=== PATIENT | male | born 1985 | race Caucasian/White ===

== ENCOUNTER 2018-02-15 16:28 | Emergency (ER) | payer MEDICAID ==
[~2018-02-15] VITALS: Ht 167.6 cm; Wt 64.4 kg
--- NOTE | 2018-02-15 16:28 | NUR ---
PT BIBA ALS TO BED 3
[2018-02-15 16:30] VITALS: BP 157/83
--- NOTE | 2018-02-15 16:42 | NUR ---
32 yo m bib als amr with c/o possible substance abuse. Patient sts he ingested "prostate vitamins" this morning. He states that he was drinking beer, his friend told him he needed prostate meds, and he took the med with beer, started feeling "funny" and "dizzy", so he drank more beer. Patient denies any drug use. Patient reports of anxiety and 5/10 "sharp", intermittent, non-radiating left sided chest pain and generalized body pain with palpation since 1000 today. Patient is tachycardiac, denies headache, dizziness, n/v at this time. Skin is dry/warm/color apprioriate for ethnicity. pt aaox4, gcs 15, cms intact, rr even and unlabored, lungs bl clear. abd soft, non-tender. er md notified. pt needs met, safety precautions in place. will continue to monitor. Patient admits to using meth approximately 2 months ago.
[2018-02-15] MEDS ORDERED: LORazepam 2 MG/ML VIAL IVP ONE (16:45)
[2018-02-15] MEDS ORDERED: NACL 0.9% 1,000 ML IV ONE (16:45)
[2018-02-15 17:09] LABS: BASOPHILS % (AUTO) 0.3 % (0.0-2.0); EOSINOPHILS % (AUTO) 0.1 % (0.0-4.0); HEMATOCRIT 43.9 % (36-52); HEMOGLOBIN 15.2 g/dL (12.0-18.0); LYMPHOCYTES % (AUTO) 9.2 % (20.5-51.1); MEAN CORPUSCULAR HEMOGLOBIN 32 pg (27-31); MEAN CORPUSCULAR HGB CONC 35 g/dL (33-37); MONOCYTES # (AUTO) 0.3 K/uL (0.8-1.0); MONOCYTES % (AUTO) 3.2 % (1.7-9.3); NEUTROPHILS # (AUTO) 9.1 K/uL (1.8-7.7); NEUTROPHILS % (AUTO) 87.2 % (42.2-75.2); PLATELET COUNT (AUTO) 263 K/uL (140-450); RED BLOOD CELL COUNT(AUTO) 4.72 MIL/uL (4.20-6.10); WHITE BLOOD COUNT (AUTO) 10.4 K/uL (4.8-10.8)
--- NOTE | 2018-02-15 17:22 | NUR ---
XRAY AT BEDSIDE
[2018-02-15 17:29] LABS: ALBUMIN 4.1 g/dL (3.4-5.0); ANION GAP 16.4 (8-16); ASPARTATE AMINOTRANSFERASE 24 U/L (15-37); CARBON DIOXIDE 26.6 mmol/L (21-32); CHLORIDE 95 mmol/L (98-107); GFR ARICAN-AMERICAN 110 mL/min (>90); GLUCOSE 136 mg/dL (74-106); SODIUM SERUM 134 mmol/L (136-145); TOTAL BILIRUBIN 0.4 mg/dL (0.0-1.0); UREA NITROGEN, BLOOD 10 mg/dL (7-18)
[2018-02-15 17:40] LABS: ACETAMINOPHEN < 0.5 ug/ml (10-30); SALICYLATE < 2.8 mg/dL (2.8-20.0)
[2018-02-15] MEDS ORDERED: ONDANSETRON 4 MG/2 ML VIAL IVP ONE (18:15)
[2018-02-15 18:16] LABS: BARBITURATE, URINE NEG. ng/ml (NEG <=200); BENZODIAZEPINE, URINE NEG. ng/mL (NEG <=200); CANNABINOID, URINE NEG. ng/mL (NEG <=50); COCAINE, URINE NEG. ng/mL (NEG <=300); OPIATE, URINE NEG. ng/mL (NEG <=2000); PHENCYCLIDINE SCREEN,URINE NEG. ng/mL (NEG <=25)
[2018-02-15] MEDS ORDERED: ONDANSETRON 4 MG/2 ML VIAL ONE (18:21)
[2018-02-15 18:40] VITALS: BP 125/78
--- NOTE | 2018-02-15 18:41 | NUR ---
Patient discharged with v/s stable. Written and verbal after care instructions given and explained. Patient alert, oriented and verbalized understanding of instructions. Ambulatory with steady gait. All questions addressed prior to discharge. ID band removed. Patient advised to follow up with PMD. Rx of xanax and zofran given. Patient educated on indication of medication including possible reaction and side effects. Opportunity to ask questions provided and answered.
== END 2018-02-15 18:41 | disposition home or self-care (01) ==
LOC: MED 16:28
DX: F15.10 Other stimulant abuse, uncomplicated (principal)
CPT/HCPCS: 36415; 71045; 80053; 80305; 82948; 85025; 93005; 96374; 96375; 99285; G0480; G0482; J2060; J2405; Q0092

== ENCOUNTER 2021-08-04 20:00 | Emergency (ER) | payer MEDICAID ==
[~2021-08-04] VITALS: Ht 165.1 cm; Wt 58.1 kg
[2021-08-04 20:04] VITALS: BP 123/76
--- NOTE | 2021-08-04 20:11 | NUR ---
PT TAKEN TO BED 6
--- NOTE | 2021-08-04 20:35 | NUR ---
ER AT BEDSIDE. PT HERE FOR CP. PT IN BED WITH SIDERAILS UP
--- NOTE | 2021-08-04 20:35 | NUR ---
Dr. Perez examining patient.
[2021-08-04] MEDS ORDERED: LIDOCAINE 5% 1 EA PATCH TP SCH (20:40)
[2021-08-04] MEDS ORDERED: IBUPROFEN 600 MG TAB PO ONE (20:40)
[2021-08-04 21:04] LABS: BASOPHILS % (AUTO) 0.4 % (0.0-2.0); EOSINOPHILS # (AUTO) 0.1 K/uL (0-0.4); HEMATOCRIT 41.3 % (36-52); HEMOGLOBIN 14.1 g/dL (12.0-18.0); LYMPHOCYTES % (AUTO) 35.2 % (20.5-51.1); MEAN CORPUSCULAR HEMOGLOBIN 33 pg (27-31); MEAN CORPUSCULAR HGB CONC 34 g/dL (33-37); MEAN CORPUSCULAR VOLUME 97.7 fL (80-94); MONOCYTES # (AUTO) 0.4 K/uL (0.8-1.0); MONOCYTES % (AUTO) 7.8 % (1.7-9.3); NEUTROPHILS # (AUTO) 3.1 K/uL (1.8-7.7); NEUTROPHILS % (AUTO) 54.6 % (42.2-75.2); PLATELET COUNT (AUTO) 234 K/uL (140-450); RED BLOOD CELL COUNT(AUTO) 4.22 MIL/uL (4.20-6.10); RED CELL DISTRIBUTION WIDTH 12.6 % (11.6-13.7); WHITE BLOOD COUNT (AUTO) 5.7 K/uL (4.8-10.8)
--- NOTE | 2021-08-04 21:15 | NUR ---
XRAY AT BEDSIDE.
[2021-08-04 21:35] VITALS: BP 123/76
[2021-08-04 21:44] LABS: ALBUMIN 3.7 g/dL (3.4-5.0); ASPARTATE AMINOTRANSFERASE 39 U/L (15-37); CHLORIDE 104 mmol/L (98-107); CREATININE 0.9 mg/dL (0.6-1.3); GFR ARICAN-AMERICAN 122 mL/min (>90); GLUCOSE 104 mg/dL (74-106); POTASSIUM 3.6 mmol/L (3.5-5.1); SODIUM SERUM 139 mmol/L (136-145); TOTAL BILIRUBIN 0.6 mg/dL (0.0-1.0); UREA NITROGEN, BLOOD 12 mg/dL (7-18)
[2021-08-04 21:52] LABS: CARBON DIOXIDE 24.6 mmol/L (21-32)
[2021-08-04] MEDS ORDERED: LID5T TP (22:03)
[2021-08-04] MEDS ORDERED: IBUP-2213 PO (22:03)
[2021-08-04] MEDS ORDERED: ALBU0.0912 INH (22:08)
[2021-08-04] MEDS ORDERED: PRED20TA5 PO (22:08)
--- NOTE | 2021-08-04 22:20 | NUR ---
LAB AT BEDSIDE 2ND TROP
--- NOTE | 2021-08-04 23:04 | NUR ---
Patient discharged with v/s stable. Written and verbal after care instructions given and explained. Patient verbalized understanding. Ambulatory with steady gait. All questions addressed prior to discharge. Advised to follow up with PMD.
== END 2021-08-04 23:04 | disposition home or self-care (01) ==
LOC: MED 20:00
DX: J20.9 Acute bronchitis, unspecified (principal); E78.00 Pure hypercholesterolemia, unspecified; Z79.899 Other long term (current) drug therapy
CPT/HCPCS: 36415; 71045; 80053; 84484; 85025; 93005; 99285; Q0092

== ENCOUNTER 2021-09-10 19:48 | Emergency (ER) | payer MEDICAID ==
[~2021-09-10] VITALS: Ht 165.1 cm; Wt 59.9 kg
[~2021-09-10 19:48] MED LIST: ALBU0.0912 INH; IBUP-2213 PO; LID5T TP; PRED20TA5 PO
[2021-09-10 20:05] VITALS: BP 116/73
--- NOTE | 2021-09-10 23:11 | NUR ---
Dr. Zuñiga examming patient.
[2021-09-10] MEDS ORDERED: NYST100022 PO (23:31)
[2021-09-10] MEDS ORDERED: DICYCLOMINE HCL LIQUID 20 MG, ALUMINUM HYD/MAG/SIMETHICONE 30 ML, LIDOCAINE VISCOUS 2% ... PO ONE ×3 (23:35)
[2021-09-10 23:36] VITALS: BP 116/73
--- NOTE | 2021-09-10 23:36 | NUR ---
Patient discharged with v/s stable. Written and verbal after care instructions given and explained. Patient alert, oriented and verbalized understanding of instructions. Ambulatory with steady gait. All questions addressed prior to discharge. ID band removed. Patient advised to follow up with PMD. Rx of Nystatin given. Patient educated on indication of medication including possible reaction and side effects. Opportunity to ask questions provided and answered.
== END 2021-09-10 23:36 | disposition home or self-care (01) ==
LOC: MED 19:48
DX: B37.81 Candidal esophagitis (principal); E78.00 Pure hypercholesterolemia, unspecified; B20 Human immunodeficiency virus [HIV] disease; Z90.49 Acquired absence of other specified parts of digestive tract; Z79.899 Other long term (current) drug therapy; Z79.2 Long term (current) use of antibiotics; Z79.1 Long term (current) use of non-steroidal anti-inflammatories (NSAID)
CPT/HCPCS: 99283

== ENCOUNTER 2022-06-30 18:07 | Emergency (ER) | payer MEDICAID ==
[~2022-06-30] VITALS: Ht 165.1 cm; Wt 66.2 kg
[~2022-06-30 18:07] MED LIST changes: +NYST100022 PO
[2022-06-30 18:38] VITALS: BP 127/78
--- NOTE | 2022-06-30 19:05 | NUR ---
PT AMB TO BED 5
[2022-06-30] MEDS ORDERED: KETOROLAC 15 MG/ML VIAL IM ONE (19:10)
[2022-06-30 19:22] LABS: BASOPHILS % (AUTO) 0.4 % (0.0-2.0); EOSINOPHILS # (AUTO) 0.1 K/uL (0-0.4); EOSINOPHILS % (AUTO) 1.5 % (0.0-4.0); HEMATOCRIT 41.8 % (36-52); HEMOGLOBIN 14.3 g/dL (12.0-18.0); LYMPHOCYTES % (AUTO) 31.3 % (20.5-51.1); MEAN CORPUSCULAR HEMOGLOBIN 33 pg (27-31); MEAN CORPUSCULAR HGB CONC 34 g/dL (33-37); MEAN CORPUSCULAR VOLUME 96.7 fL (80-94); MONOCYTES # (AUTO) 0.5 K/uL (0.8-1.0); MONOCYTES % (AUTO) 7.5 % (1.7-9.3); NEUTROPHILS # (AUTO) 3.7 K/uL (1.8-7.7); NEUTROPHILS % (AUTO) 59.3 % (42.2-75.2); PLATELET COUNT (AUTO) 255 K/uL (140-450); RED BLOOD CELL COUNT(AUTO) 4.33 MIL/uL (4.20-6.10); RED CELL DISTRIBUTION WIDTH 13.3 % (11.6-13.7); WHITE BLOOD COUNT (AUTO) 6.3 K/uL (4.8-10.8)
[2022-06-30 20:23] LABS: ALBUMIN 4.3 g/dL (3.4-5.0); ANION GAP 13.3 (8-16); CARBON DIOXIDE 28.8 mmol/L (21-32); CREATININE 1.1 mg/dL (0.6-1.3); POTASSIUM 4.1 mmol/L (3.5-5.1); TOTAL BILIRUBIN 0.4 mg/dL (0.0-1.0)
[2022-06-30] MEDS ORDERED: IBUP-2213 PO (21:52)
[2022-06-30 22:19] VITALS: BP 123/77
== END 2022-06-30 22:20 | disposition home or self-care (01) ==
LOC: MED 18:07
DX: R07.9 Chest pain, unspecified (principal); E78.5 Hyperlipidemia, unspecified; Z90.49 Acquired absence of other specified parts of digestive tract; Z79.899 Other long term (current) drug therapy; Z79.1 Long term (current) use of non-steroidal anti-inflammatories (NSAID); Z79.2 Long term (current) use of antibiotics
CPT/HCPCS: 36415; 71045; 80053; 83880; 84484; 85025; 93005; 96372; 99285; J1885; Q0092

== ENCOUNTER 2022-08-29 18:34 | Emergency (ER) | payer MEDICAID ==
[~2022-08-29] VITALS: Ht 165.1 cm; Wt 64.9 kg
[2022-08-29 19:01] VITALS: BP 126/91
[2022-08-29] MEDS ORDERED: BENZ-300 PO (20:54)
[2022-08-29] MEDS ORDERED: LORA10SG1 PO (20:54)
[2022-08-29 21:16] VITALS: BP 126/91
--- NOTE | 2022-08-29 21:17 | NUR ---
Patient discharged with v/s stable. Written and verbal after care instructions given and explained. New rx cepacol and claritin. Patient verbalized understanding. Ambulatory with steady gait. All questions addressed prior to discharge. Advised to follow up with PMD.
== END 2022-08-29 21:17 | disposition home or self-care (01) ==
LOC: MED 18:34
DX: J02.9 Acute pharyngitis, unspecified (principal); R03.0 Elevated blood-pressure reading, without diagnosis of hypertension; Z79.899 Other long term (current) drug therapy; Z79.1 Long term (current) use of non-steroidal anti-inflammatories (NSAID)
CPT/HCPCS: 99282